=== PATIENT | male | born 2000 | race Caucasian/White ===

== ENCOUNTER 2021-04-12 08:30 | Day surgery (SDC) | payer MEDICAID, SELFPAY ==
[~2021-04-12] VITALS: Ht 172.7 cm; Wt 73.0 kg
[2021-04-12] MEDS ORDERED: fentaNYL CITRATE/PF 100 MCG/2 ML AMP IVP ONE (10:43)
[2021-04-12] MEDS ORDERED: DEXAMETHASONE SOD PHOSPHATE 4 MG/ML VIAL IVP ONE (10:43)
[2021-04-12] MEDS ORDERED: SEVOFLURANE 15 MIN GAS INH ONE (10:43)
[2021-04-12] MEDS ORDERED: LR 1,000 ML IV.SOLN IV ONE (10:43)
[2021-04-12] MEDS ORDERED: ONDANSETRON HCL 4 MG/2 ML VIAL IVP ONE (10:43)
[2021-04-12] MEDS ORDERED: SUGAMMADEX SODIUM 200 MG/2 ML VIAL IV ONE (10:43)
[2021-04-12] MEDS ORDERED: MIDAZOLAM HCL 5 MG/5 ML VIAL IVP ONE (10:43)
[2021-04-12] MEDS ORDERED: LIDOCAINE/EPI 1% 1:100000 20 ML VIAL INJ ONE (10:43)
[2021-04-12] MEDS ORDERED: PROPOFOL 200MG/ 20ML VIAL (DIPRIVAN) IV ONE (10:43)
[2021-04-12] MEDS ORDERED: LIDOCAINE 1% 10 MG/ML, 20 ML MDV INJ ONE (10:43)
[2021-04-12] MEDS ORDERED: METOCLOPRAMIDE HCL 10 MG/2 ML VIAL IVP ONE (10:43)
[2021-04-12] MEDS ORDERED: SUCCINYLCHOLINE CHLORIDE 20 MG/ML(QUELICIN) IVP ONE (10:43)
[2021-04-12] MEDS ORDERED: ACETAMINOPHEN I.V. 1000 MG 100 ML IV ONE (11:03)
[2021-04-12] MEDS ORDERED: LR 1,000 ML IV SCH (11:15)
[2021-04-12] MEDS ORDERED: HYDROmorphone 1 MG/ML INJ. CARTRIDGE IVP PRN (11:15)
[2021-04-12] MEDS ORDERED: MEPERIDINE HCL/PF 25 MG/ML DISP.SYRIN IVP PRN (11:15)
[2021-04-12] MEDS ORDERED: HYDROmorphone 2 MG/ML VIAL IVP PRN ×2 (11:15)
[2021-04-12] MEDS ORDERED: ACETAMINOPHEN 500 MG TABLET PO PRN (12:00)
[2021-04-12] MEDS ORDERED: ONDANSETRON HCL 4 MG/2 ML VIAL IVP PRN (12:00)
[2021-04-12] MEDS ORDERED: HYDROcodone/ACETAMIN 5-325 MG TAB (NORCO/ VICODIN) PO PRN (12:00)
[2021-04-12] MEDS ORDERED: ONDANSETRON 4 MG ODT TAB PO PRN (12:00)
[2021-04-12 13:56] VITALS: BP_SYST 130
== END 2021-04-12 13:30 | disposition home or self-care (01) ==
LOC: SDS 08:30 → SMU 08:34 → SDS 13:30
PROVIDERS: ATTEND Otolaryngology
DX: J35.01 Chronic tonsillitis (principal); I10 Essential (primary) hypertension; F41.9 Anxiety disorder, unspecified; I25.2 Old myocardial infarction; F17.210 Nicotine dependence, cigarettes, uncomplicated; Z20.822 Contact with and (suspected) exposure to COVID-19; Z79.899 Other long term (current) drug therapy
CPT/HCPCS: 42826; 88304; C9399; J0131; J0330; J1100; J2001; J2250; J2405; J2704; J2765; J3010; J7120; U0003